=== PATIENT | male | born 1970 | race Caucasian/White ===

== ENCOUNTER 2016-09-02 21:46 | Emergency (ER) | payer BC ==
[2016-09-02 22:01] VITALS: BP 137/99
[2016-09-02] MEDS ORDERED: HYDROmorphone 1 MG/ML Syringe IM ONE (22:04)
[2016-09-02] MEDS ORDERED: Promethazine 25 MG/ML SDV IM ONE (22:05)
--- NOTE | 2016-09-02 22:16 | EDM.PDOC ---
ED HPI GENERAL MEDICAL PROBLEM - General Chief Complaint: Lower Extremity Injury/Pain Stated Complaint: RIGHT LEG /CALF INJURY Time Seen by Provider: 09/02/16 22:04 Source of Information: Reports: Patient History Limitations: Reports: No Limitations - History of Present Illness INITIAL COMMENTS - FREE TEXT/NARRATIVE: 45-year-old male attends the ED after suffering acute injury to his right calf musculature. He was playing baseball this evening and states that he had ball hit towards him and took off quickly to catch the ball. He felt a sudden tear pulling pain in his medial calf that stopped him in his tracks and made it impossible to run or walk at all. Injury occurred approximate half hour before coming to the ED. No previous injury to the right lower extremity noted. Pain is 10 out of 10. 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: Other (see below) (None) Right Lower Leg Pain Score (Numeric/FACES): 10 - Related Data Allergies Allergy/AdvReac Type Severity Reaction Status Date / Time No Known Allergies Allergy Verified 09/02/16 21:57 Home Meds: Home Meds Zolpidem [Ambien] 10 mg PO BEDTIME PRN 11/27/14 [History] Hydrocodone/Acetaminophen [[place] 5-325 Tablet] 1 - 2 tab PO Q6H PRN #20 tablet 05/08/16 [Rx] Orphenadrine [Norflex] 1 tab PO Q12H PRN #20 tab.er 05/08/16 [Rx] Prednisone [IMW: predniSONE] 20 mg PO QPM #5 tab 05/08/16 [Rx] Polyethylene Glycol 3350 [MiraLAX] 17 gm PO DAILY #10 packet 09/02/16 [Rx] oxyCODONE HCl/Acetaminophen [Percocet 5-325 mg Tablet] 1 - 2 each PO Q4H PRN # 28 tablet 09/02/16 [Rx] Past Medical History - Past Health History Medical/Surgical History: Denies Medical/Surgical History Musculoskeletal History: Reports: Back Pain, Chronic, Osteoarthritis Neurological History: Reports: Other (See Below) - Past Surgical History Musculoskeletal Surgical History: Reports: Shoulder Surgery Social & Family History - Tobacco Use Smoking Status *Q: Never Smoker Second Hand Smoke Exposure: No - Caffeine Use Caffeine Use: Reports: None - Alcohol Use Days Per Week of Alcohol Use: 1 Number of Drinks Per Day: 1 Total Drinks Per Week: 1 - Recreational Drug Use Recreational Drug Use: No - Living Situation & Occupation Living situation: Reports: , with Spouse, with Family Occupation: Employed Review of Systems - Review of Systems Review Of Systems: See Below Constitutional: Reports: No Symptoms Eyes: Reports: No Symptoms Ears: Reports: No Symptoms Nose: Reports: No Symptoms Mouth/Throat: Reports: No Symptoms Respiratory: Reports: No Symptoms Cardiovascular: Reports: No Symptoms GI/Abdominal: Reports: No Symptoms Genitourinary: Reports: No Symptoms Musculoskeletal: Reports: Leg Pain Skin: Reports: No Symptoms (See history present illness) Neurological: Reports: No Symptoms Psychiatric: Reports: No Symptoms ED EXAM, GENERAL - Physical Exam Exam: See Below Exam Limited By: No Limitations General Appearance: Alert, Moderate Distress Peripheral Pulses: 2+: Posterior Tibial (L), Posterior Tibial (R), Dorsalis Pedis (L), Dorsalis Pedis (R) Extremities: Other (Examination shows swelling in the distribution of the mid belly of the right gastrocnemius muscle. Palpation of the lateral gastrocnemius muscle is normal. The Achilles tendon is intact. He states the pain at the junction of the soleus and gastrocnemius muscles posterior calf. The medial calf is exquisitely tender to even to minimal palpation. Good pulses to his feet dorsalis pedis and posterior tibial.) Skin Exam: Warm, Dry, Intact, Normal Color, No Rash Course - Vital Signs Last Recorded V/S: Last Vital Signs Temp 36.7 C 09/02/16 21:57 Pulse 86 09/02/16 21:57 Resp BP 137/99 H 09/02/16 21:57 Pulse Ox 97 09/02/16 21:57 - Orders/Labs/Meds Meds: Medications Discontinued Medications Generic Name Dose Route Start Last Admin Trade Name Freq PRN Reason Stop Dose Admin Hydromorphone HCl 1 mg 09/02/16 22:04 09/02/16 22:10 Dilaudid IM 06/08/17 22:05 1 mg ONETIME ONE Administration Promethazine HCl 25 mg 09/02/16 22:05 09/02/16 22:10 Phenergan IM 09/02/16 22:06 25 mg ONETIME ONE Administration - Radiology Interpretation Free Text/Narrative:: 45-year-old male presents to the ED with acute injury to his right calf musculature that occurred while playing baseball. He reports he had a ball struck towards him and he took off quickly after the ball. [place] a sudden tearing pulling pain in medial aspect of his right calf. This stopped him in his tracks was no longer able to run or weight-bear. Examination about half hour after injury reveals marked swelling and hematoma formation within the medial gastrocnemius muscle distribution. Lateral gastroc appears to be intact. Achilles tendon is intact in the toes good pulses to his foot. Conservative Rx with Bi wrap to the area 12 hours on 4 hours off 12 hours on its center. Ice pack to the area for one half hour out of every 4 hours the next 2 days to reduce swelling. Elevate foot as much as possible for the next 2 days. Nonweightbearing crutch walking until followup with Dr. Pitt in the clinic in about 7-8 days' time. This injury is like to keep away from the work place for at least 3 weeks if not longer. Prescription to the instrument machine for 30 tablets of Percocet 5 325 mg strength one or 2 every 4-6 hours needed for pain relief. Departure - Departure Time of Disposition: 22:20 Disposition: Home, Self-Care 01 Condition: fair Clinical Impression: Gastrocnemius muscle tear Qualifiers: Encounter type: initial encounter Laterality: right Qualified Code(s): S86.811A - Strain of other muscle(s) and tendon(s) at lower leg level, right leg , initial encounter - Discharge Information Prescriptions: Polyethylene Glycol 3350 [MiraLAX] 17 gm PO DAILY #10 packet oxyCODONE HCl/Acetaminophen [Percocet 5-325 mg Tablet] 1 - 2 each PO Q4H PRN # 28 tablet PRN Reason: pain relief. Instructions: Medial Head Gastrocnemius Tear With Rehab-SportsMed Referrals: Afshan Anderson PA [Primary Care Provider] - Forms: ED Department Discharge, Return to Work/School Form Additional Instructions: Evaluation in the imaged department tonight in regards to acute injury to the right calf muscle examination reveals acute swelling and hemorrhage within the medial gastrocnemius muscle --right leg. Lateral gastrocnemius muscle appears to be intact and normal. This means a partial tear has occurred within the belly of the muscle of the medial gastrocnemius muscle. No surgical management is required but this injury will take a significant length of time to heal completely. Most important is to keep it elevated as much as possible for the next 2 days. Bi wrap on the area 12 hours on and 4 hours off and then put on for another 12 hours etc. Ice pack to the area for one half hour of every 4 hours for the next 2 days. After this he may apply heat to the area to help the body to liquify the blood within the muscle tissue. Non weightbearing crutch walking for at least the next week. Suggest followup with Dr. Coronel --orthopedic surgeon in approximately a week's time. Please call [phone] to arrange an appointment tomorrow morning. At that time he may be able to determine when you might be able to return to work. Likely going to be off of work for a minimum of 2 weeks and likely closer to 3 weeks. Given her pain medicine injection in the ED. May take Percocet 5/ 325 tablets one or 2 every 4-6 hours for pain relief as needed for the next 2 days. After 2 days she can also start to use Motrin 600 mg every 6 hours as needed for pain relief. Just MiraLax powder 17 g one scoop daily to prevent constipation while on pain pills.
== END 2016-09-02 22:35 | disposition home or self-care (01) ==
LOC: JD.ED 21:46
DX: S86.811A Strain of other muscle(s) and tendon(s) at lower leg level, right leg, initial encounter (principal); M19.90 Unspecified osteoarthritis, unspecified site; Z98.890 Other specified postprocedural states; Z79.899 Other long term (current) drug therapy; W21.03XA Struck by baseball, initial encounter; Y93.64 Activity, baseball; Y92.320 Baseball field as the place of occurrence of the external cause
CPT/HCPCS: 96372; 99283; J1170; J2550

== ENCOUNTER 2019-09-27 20:42 | Emergency (ER) | payer BC ==
[2019-09-27 20:52] VITALS: BP 141/96; PULSE 83
[2019-09-27] MEDS ORDERED: Ondansetron 4 MG Tab.DIS PO ONE (21:01)
[2019-09-27] MEDS ORDERED: HYDROmorphone 1 MG/ML Syringe IM ONE (21:01)
--- NOTE | 2019-09-27 21:07 | EDM.PDOC ---
ED HPI GENERAL MEDICAL PROBLEM - General Chief Complaint: Trauma Stated Complaint: hit in head with softball Time Seen by Provider: 09/27/19 20:52 Source of Information: Reports: Patient, RN Notes Reviewed, Significant Other () History Limitations: Reports: No Limitations - History of Present Illness INITIAL COMMENTS - FREE TEXT/NARRATIVE: Patient is a 49-year-old male who presents to the ED for evaluation of a head injury. Patient was playing softball tonight, and around roughly 8:30 PM, he was struck in the left druze/ear by a throw from the catcher during softball. Patient states that he fell down immediately, but stood up right afterwards, but again fell down afterwards. He states that he hurt his left knee and this process, he is complaining of nausea at this time, pain in his left druze/ear region, there is mild amount of dried blood on the auricle of the left ear, he did not have any sort of clear fluid leaking from it, nor did he have any fluid coming from his nose. He denies any blurred vision double vision, he has no headache, but states the left side of his face hurts. Patient denies any broken or loose teeth. He is alert and oriented x3 at this time. Patient denies any other sick-like symptoms, fever/chills, cough/shortness of breath, chest pain. He is not thought to have any loss of consciousness or blackout at the time of injury. Left Head Pain Score (Numeric/FACES): 8 - Related Data Allergies Allergy/AdvReac Type Severity Reaction Status Date / Time No Known Allergies Allergy Verified 09/02/16 21:57 Home Meds: Home Meds Zolpidem [Ambien] 10 mg PO BEDTIME PRN 11/27/14 [History] Hydrocodone/Acetaminophen [[place] 5-325 Tablet] 1 - 2 tab PO Q6H PRN #20 tablet 05/08/16 [Rx] Orphenadrine [Norflex] 1 tab PO Q12H PRN #20 tab.er 05/08/16 [Rx] Prednisone [IMW: predniSONE] 20 mg PO QPM #5 tab 05/08/16 [Rx] Polyethylene Glycol 3350 [MiraLAX] 17 gm PO DAILY #10 packet 09/02/16 [Rx] oxyCODONE HCl/Acetaminophen [Percocet 5-325 mg Tablet] 1 - 2 each PO Q4H PRN #28 tablet 09/02/16 [Rx] Past Medical History Musculoskeletal History: Reports: Back Pain, Chronic, Osteoarthritis - Past Surgical History HEENT Surgical History: Reports: Adenoidectomy, Tonsillectomy Musculoskeletal Surgical History: Reports: Shoulder Surgery Social & Family History - Family History Family Medical History: Noncontributory - Tobacco Use Smoking Status *Q: Never Smoker Second Hand Smoke Exposure: No - Caffeine Use Caffeine Use: Reports: None - Recreational Drug Use Recreational Drug Use: No - Living Situation & Occupation Living situation: Reports: , with Spouse, with Family Occupation: Employed Review of Systems - Review of Systems Review Of Systems: Comprehensive ROS is negative, except as noted in HPI. ED EXAM, GENERAL - Physical Exam Exam: See Below Exam Limited By: No Limitations General Appearance: Alert, WD/WN, No Apparent Distress (pt is nauseous and has emesis bag present at his side.) Eye Exam: Bilateral Eye: EOMI, Normal Inspection, PERRL Ears: Normal External Exam, Hearing Grossly Normal, Normal TMs (no blood behind either TM) Ear Exam: Left Ear: Bleeding (L EAC has a scant amount of dried blood, which appears to have come from an abrasion to the anteriosuperior aspect.) Nose: Normal Inspection, Normal Mucosa, No Blood Throat/Mouth: Normal Inspection, Normal Lips, Normal Teeth, Normal Gums, Normal Oropharynx, Normal Voice, No Airway Compromise Head: Atraumatic, Normocephalic Neck: Normal Inspection, Supple, Non-Tender, Full Range of Motion Respiratory/Chest: No Respiratory Distress, Lungs Clear, Normal Breath Sounds, No Accessory Muscle Use, Chest Non-Tender Cardiovascular: Normal Peripheral Pulses, Regular Rate, Rhythm, No Murmur Extremities: Normal Inspection, Normal Range of Motion, Normal Capillary Refill Neurological: Alert, Oriented, CN II-XII Intact (grossly), Normal Cognition, No Motor/Sensory Deficits Psychiatric: Normal Mood, Other (pt appears to be a little disoriented, and slower to answer questions, but does answer appropriately) Skin Exam: Warm, Dry, Intact, Normal Color, No Rash Course - Vital Signs Last Recorded V/S: Last Vital Signs Temp 98.0 F 09/27/19 20:49 Pulse 83 07/02/20 20:49 Resp 16 09/27/19 20:49 BP 141/96 H 09/27/19 20:49 Pulse Ox 95 09/27/19 20:49 - Orders/Labs/Meds Orders: Active Orders 24 hr Category Date Time Status Head wo Cont [CT] Stat Exams 09/27/19 21:00 Ordered Knee Min 4V Lt [CR] Stat Exams 09/27/19 21:02 Ordered Meds: Medications Discontinued Medications Generic Name Dose Route Start Last Admin Trade Name [place] PRN Reason Stop Dose Admin Hydromorphone HCl 1 mg 09/27/19 21:01 09/27/19 21:11 Dilaudid IM 09/27/19 21:02 1 mg ONETIME ONE Administration Ondansetron HCl 4 mg 09/27/19 21:01 09/27/19 21:11 Zofran Odt PO 09/27/19 21:02 4 mg ONETIME ONE Administration - Re-Assessments/Exams Free Text/Narrative Re-Assessment/Exam: 09/27/19 21:07 Patient presents to the ED for evaluation of his head injury after a softball accident. Have ordered a head CT without contrast, 1 mg IM Dilaudid and 4 mg ODT Zofran for initial management. I do highly suspect the patient has at least suffered a concussion clinically, will rule out other abnormality or fracture with head CT and knee x-ray. This is likely that he buckled and landed on his left knee during the fall. 09/27/19 22:03 Knee x-rays have been obtained, and do appear to be within normal limits, no acute fracture or other bony abnormality appreciated by myself. Head CT is also done, demonstrates no acute bleeds or other bony abnormalities, official radiology read is pending. 09/27/19 22:[address] has returned, there is no acute intracranial abnormalities appreciated per V rad. Patient is still having quite a bit of pain on the left side of his head. I will provide him with some Percocet and see if this does not help relieve some of his pain. Departure - Departure Time of Disposition: 22:29 Disposition: Home, Self-Care 01 Condition: Good Clinical Impression: Traumatic injury of head Qualifiers: Encounter type: initial encounter Qualified Code(s): S09.90XA - Unspecified injury of head, initial encounter Concussion Qualifiers: Encounter type: initial encounter Loss of consciousness presence/duration: without LOC Qualified Code(s): S06.0X0A - Concussion without loss of consciousness, initial encounter - Discharge Information *PRESCRIPTION DRUG MONITORING PROGRAM REVIEWED*: No *COPY OF PRESCRIPTION DRUG MONITORING REPORT IN PATIENT PAVAN: No Instructions: Concussion, Adult, [id number] Forms: ED Department Discharge Additional Instructions: You were evaluated in the ED today for your head injury. Your head CT demonstrated no acute intracranial abnormalities or bleeds. You have been clinically diagnosed with a concussion. A concussion can affect how the brain works for a while. It may lead to headaches, changes in alertness, or loss of consciousness. Getting better from a concussion takes days to weeks or even months. You may be irritable, have trouble concentrating, or be unable to remember things. You may also have headaches, dizziness, or blurry vision. These problems will likely recover slowly. You may want to get help from family or friends for making important decisions. You may use acetaminophen (Tylenol) 500mg or 600 mg ibuprofen (Advil/Motrin) Q6H for a headache. You were given a prescription for a strong pain medication, oxycodone/acetaminophen 5/325 mg, please take 1 tab every 6 hours as needed for pain not relieved by Tylenol or ibuprofen alone. Please note this medication does contain Tylenol in it, so do not take more than 4000 mg in a 24-hour time span. These medications can be addictive, so please take as few as possible to achieve adequate pain control. These meds can also be quite constipating, recommend that you increase your oral fluid intake and take a stool softener like MiraLAX while taking these medications. Do not drive while taking this medication. You DO NOT need to stay in bed. Light activity around the home is okay. But avoid exercise, lifting weights, or other heavy activity. You may want to keep your diet light if you have nausea and vomiting. Drink fluids to stay hydrated. As long as you have symptoms, avoid sports activities, operating machines, being overly active, doing physical labor. Ask your doctor when you can return to your activities. If symptoms DO NOT go away or are not improving after 2 or 3 weeks, talk to your doctor. Call the doctor if you have: -A stiff neck -Fluid and blood leaking from your nose or ears -A hard time waking up or have become more sleepy -A headache that is getting worse, lasts a long time, or is not relieved by [id number] pain relievers -Fever -Vomiting more than 3 times -Problems walking or talking -Changes in speech (slurred, difficult to understand, does not make sense) -Problems thinking straight -Seizures (jerking your arms or legs without control) -Changes in behavior or unusual behavior -Double vision Regarding your left knee pain, x-rays demonstrated no bony injury or other abnormality. Likely there is some soft tissue injury, you have been given a knee immobilizer, please wear this as much as needed for pain relief. If your knee pain is not getting much better in 7 to 10 days, recommend you have it reevaluated for the possibility of an MRI to rule out further soft tissue injury. Please return to the ED if your symptoms change or worsen. Sepsis Event Note (ED) - Evaluation Sepsis Screening Result: No Definite Risk - Focused Exam Vital Signs: Vital Signs Temp Pulse Resp BP Pulse Ox 09/27/19 20:49 98.0 F 83 16 141/96 H 95 - My Orders Last 24 Hours: My Active Orders 09/27/19 21:00 Head wo Cont [CT] Stat 09/27/19 21:02 Knee Min 4V Lt [CR] Stat - Assessment/Plan Last 24 Hours: My Active Orders 09/27/19 21:00 Head wo Cont [CT] Stat 09/27/19 21:02 Knee Min 4V Lt [CR] Stat
[2019-09-27] MEDS ORDERED: Acetaminophen/oxyCODONE 325-5 MG Tab PO ONE (22:25)
--- NOTE | 2019-09-28 07:48 | CT ---
Head CT Technique: Multiple axial sections through the brain were obtained. Intravenous contrast was not utilized. Comparison: No prior intracranial imaging is available. Findings: Ventricles along with basal cisterns and sulci over the convexities are within normal limits for the patient's age. No abnormal parenchymal densities are seen. No evidence of intracranial hemorrhage. No midline shift or mass-effect is seen. Bone window settings were reviewed. Visualized mastoid sinuses and visualized paranasal sinuses show nothing acute. No acute calvarial finding is appreciated. Impression: 1. Nothing acute is identified on noncontrast head CT exam. Diagnostic code #1 This report was dictated in MDT I agree with preliminary report from [email or web address], finalized on 09/27/19, 11:08 PM [employer] Daylight Time
--- NOTE | 2019-09-28 07:49 | CR ---
Left knee: 4 views of the left knee were obtained. Comparison: No previous study. Mild medial joint space narrowing is seen as compared the lateral joint. No joint effusion is seen. No acute fracture or other bony abnormality is appreciated. Impression: 1. Mild medial joint space narrowing. 2. Left knee study is otherwise unremarkable. Diagnostic code #2 This report was dictated in MDT
== END 2019-09-27 22:55 | disposition home or self-care (01) ==
LOC: JD.ED 20:42
DX: S06.0X0A Concussion without loss of consciousness, initial encounter (principal); Z79.899 Other long term (current) drug therapy; W19.XXXA Unspecified fall, initial encounter; Y93.64 Activity, baseball
CPT/HCPCS: 70450; 73564; 96372; 99284; A9270; J1170; 99283

== ENCOUNTER 2019-09-30 20:55 | Emergency (ER) | payer BC ==
[2019-09-30 21:15] VITALS: BP 145/83; PULSE 87
--- NOTE | 2019-09-30 21:21 | EDM.PDOC ---
ED HPI GENERAL MEDICAL PROBLEM - General Chief Complaint: Fever Stated Complaint: fever Time Seen by Provider: 09/30/19 21:18 Source of Information: Reports: Patient History Limitations: Reports: No Limitations - History of Present Illness INITIAL COMMENTS - FREE TEXT/NARRATIVE: Patient is an unfortunate 49-year-old male who presents emergency department today with complaint of headache dizziness fever cough chills congestion runny nose and body aches. Patient reports that he was seen here 3 days ago because he took a softball to his left ear which caused a loss of consciousness patient still does not remember the trauma, she reports that since that time he has had headaches and dizziness and he still has bruising to his left ear and tenderness over his left mastoid, the patient reports that this afternoon developing a cough this evening he started running fever took Motrin at home became concerned and came to the emergency department for evaluation positive cough nonproductive no shortness of breath no chest pain no nausea no vomiting no diarrhea Headache Pain Score (Numeric/FACES): 5 - Related Data Allergies Allergy/AdvReac Type Severity Reaction Status Date / Time No Known Allergies Allergy Verified 09/02/16 21:57 Home Meds: Home Meds Zolpidem [Ambien] 10 mg PO BEDTIME PRN 11/27/14 [History] oxyCODONE HCl/Acetaminophen [Percocet 5-325 mg Tablet] 1 - 2 each PO Q4H PRN #28 tablet 09/02/16 [Rx] Past Medical History - Past Health History Medical/Surgical History: Denies Medical/Surgical History Musculoskeletal History: Reports: Back Pain, Chronic, Osteoarthritis Neurological History: Reports: Other (See Below) - Past Surgical History HEENT Surgical History: Reports: Adenoidectomy, Tonsillectomy Musculoskeletal Surgical History: Reports: Shoulder Surgery Social & Family History - Family History Family Medical History: Noncontributory - Caffeine Use Caffeine Use: Reports: None - Living Situation & Occupation Living situation: Reports: , with Spouse, with Family Occupation: Employed ED ROS GENERAL - Review of Systems Review Of Systems: See Below Constitutional: Reports: Fever, Chills, Fatigue Respiratory: Reports: Cough Cardiovascular: Denies: Chest Pain, Dyspnea on Exertion Musculoskeletal: Denies: Neck Pain, Leg Pain Neurological: Reports: Dizziness ED EXAM, GENERAL - Physical Exam Exam: See Below Exam Limited By: No Limitations General Appearance: Alert, WD/WN, Mild Distress Ears: Other (Bluish ecchymosis to left pinna) Throat/Mouth: Other (Mild pharyngeal erythema) Head: Other (Ecchymosis to left pinna with mild tenderness to left mastoid) Neck: Normal Inspection, Supple, Non-Tender, Full Range of Motion Respiratory/Chest: No Respiratory Distress, Lungs Clear, Normal Breath Sounds, No Accessory Muscle Use, Chest Non-Tender Cardiovascular: Normal Peripheral Pulses, Regular Rate, Rhythm, No Edema, No Gallop, No JVD, No Murmur, No Rub GI/Abdominal: Normal Bowel Sounds, Soft, Non-Tender, No Organomegaly, No Distention, No Abnormal Bruit, No Mass Back Exam: Normal Inspection, Full Range of Motion, NT Extremities: Normal Inspection, Normal Range of Motion, Non-Tender, Normal Capillary Refill, No Pedal Edema Neurological: Alert, Oriented Skin Exam: Warm, Dry, Intact, No Rash Course - Vital Signs Last Recorded V/S: Last Vital Signs Temp 100.0 F 09/30/19 21:13 Pulse 87 09/30/19 21:13 Resp 20 09/30/19 21:13 BP 145/83 H 09/30/19 21:13 Pulse Ox 96 09/30/19 21:13 - Orders/Labs/Meds Orders: Active Orders 24 hr Category Date Time Status Chest 1V Frontal [CR] Stat Exams 09/30/19 21:17 Taken Head wo Cont [CT] Stat Exams 09/30/19 21:17 Taken CORONAVIRUS COVID-19 PCR PHL Stat Lab 09/30/19 21:18 Ordered - Radiology Interpretation Free Text/Narrative:: Chest x-ray interpreted by ms NAD - Re-Assessments/Exams Free Text/Narrative Re-Assessment/Exam: 09/30/19 22:26 CT head "impression: No acute intracranial abnormality" Departure - Departure Time of Disposition: 22:26 Disposition: Home, Self-Care 01 Clinical Impression: Respiratory infection, Postconcussive syndrome - Discharge Information Instructions: Upper Respiratory Infection, Adult, [id number], Post-Concussion Syndrome Referrals: Sanam Leon, [facility] [Primary Care Provider] - Forms: ED Department Discharge Additional Instructions: Home, rest, Tylenol or Motrin for fever or pain, we suspect you may have coronavirus, we recommend that you quarantine for 14 days, we have sent a swab for coronavirus and should have results in the next 3 to 5 days we will call you with results, return as needed for any worsening condition Sepsis Event Note (ED) - Evaluation Sepsis Screening Result: No Definite Risk - Focused Exam Vital Signs: Vital Signs Temp Pulse Resp BP Pulse Ox 09/30/19 21:13 100.0 F 87 20 145/83 H 96 - My Orders Last 24 Hours: My Active Orders 09/30/19 21:17 Chest 1V Frontal [CR] Stat Head wo Cont [CT] Stat 09/30/19 21:18 CORONAVIRUS COVID-19 PCR PHL Stat - Assessment/Plan Last 24 Hours: My Active Orders 09/30/19 21:17 Chest 1V Frontal [CR] Stat Head wo Cont [CT] Stat 09/30/19 21:18 CORONAVIRUS COVID-19 PCR PHL Stat
--- NOTE | 2019-10-01 07:11 | CR ---
Chest: PA view of the chest was obtained. Comparison: No prior chest imaging is available. Heart size and mediastinum are normal. Lungs are clear. Bony structures are unremarkable. Impression: 1. Nothing acute is seen on PA chest x-ray. Diagnostic code #1 This report was dictated in MDT
--- NOTE | 2019-10-01 07:19 | CT ---
Head CT Technique: Multiple axial sections through the brain were obtained. Intravenous contrast was not utilized. Valeriano: Previous head CT study of 09/27/19. Findings: Ventricles along with basal cisterns and sulci over the convexities are within normal limits for the patient's age. No abnormal parenchymal densities are seen. No evidence of intracranial hemorrhage. No midline shift or mass-effect is seen. Bone window settings were reviewed. Visualized mastoid sinus is show nothing acute. Partially visualized soft tissue abnormality within the right maxillary sinus is seen. This measures 2.5 cm and most likely represents a retention cyst. This area was not included on prior exam. No acute calvarial finding is seen. Impression: 1. Retention cyst within the left maxillary sinus. 2. Nothing acute is identified on noncontrast head CT exam. Diagnostic code #2 This report was dictated in MDT I agree with preliminary report from [place], finalized on 09/30/19, 11:22 PM Central Daylight Time
== END 2019-09-30 23:20 | disposition home or self-care (01) ==
LOC: JD.ED 20:55
DX: F07.81 Postconcussional syndrome (principal); J98.8 Other specified respiratory disorders; Z20.828 Contact with and (suspected) exposure to other viral communicable diseases
CPT/HCPCS: 70450; 70450-26; 71045; 71045-26; 99284-25; U0002